=== PATIENT | female | born 1965 | race Two or more races ===

== ENCOUNTER 2017-06-03 14:49 | Emergency (ER) | payer MEDICAID ==
[~2017-06-03] VITALS: Ht 162.6 cm; Wt 45.4 kg
--- NOTE | 2017-06-03 15:15 | NUR ---
marlee - friend. please call with updates/discharge.
[2017-06-03 15:18] VITALS: BP 86/57
[2017-06-03] MEDS ORDERED: IBUPROFEN 400 MG TABLET PO ONE (15:30)
[2017-06-03] MEDS ORDERED: ACETAMINOPHEN ES 500 MG TABLET PO ONE (15:30)
[2017-06-03] MEDS ORDERED: ACETAMINOPHEN ES 500 MG TABLET ONE (15:40)
[2017-06-03] MEDS ORDERED: IBUPROFEN 400 MG TABLET ONE (15:41)
== END 2017-06-03 16:55 | disposition home or self-care (01) ==
LOC: ER 14:53
DX: B34.9 Viral infection, unspecified (principal)
CPT/HCPCS: 99283; A4606; Z7610